=== PATIENT | female | born 1975 | race Caucasian/White ===

== ENCOUNTER 2016-10-04 16:13 | Emergency (ER) | payer OTHER ==
[~2016-10-04] VITALS: Ht 166.4 cm; Wt 49.8 kg
[2016-10-04 16:18] VITALS: TEMP 36.7; Ht 166.4 cm; Wt 49.8 kg
[2016-10-04] MEDS ORDERED: ONDANSETRON INJ 2 MG/ML 2 ML VIAL IV STA (16:26)
[2016-10-04] MEDS ORDERED: SODIUM CHLORIDE 0.9% 1000ML 1,000 ML IV STA (16:26)
--- NOTE | 2016-10-04 16:39 | EMERGENCY ROOM VISIT NOTE ---
History Report prepared by Kriss: Timothy Brugos Under the Supervision of: Dr. Yakov Rodriguez D.O. First contact with patient: 16:22 Chief Complaint: VOMITING Stated Complaint: VOMITING,SEIZURES History of Present Illness The patient is a 41 year old female who presents to the Emergency Room with complaints of vomiting that began this morning. She is vomiting about once per hour. The patient admitted to being a drug user. The patient has been using heroin through an IV and methamphetamine through means of smoking. Her last heroin use was three days ago. The patient is trying to quit her drug addiction. She is using Suboxone once per day to fight the withdrawal symptoms. The patient has some sores on her legs that the is concerned might be infected. She also had two seizures today: one mildly this morning and one more severely this afternoon. She has gone through withdrawal before. The patient's last period was a couple of months ago. She has a history of a tubal ligation, COPD, anxiety, depression, bipolar disorder and PTSD. She is not currently taking her psychological medications. She is also experiencing some diarrhea, nausea, and diaphoresis. She denies any fevers. Source of History: patient Onset: this morning Position: other (GI) Symptom Intensity: 1 episode per hour Quality: other (emesis) Timing: intermittent Associated Symptoms: + diaphoresis, + diarrhea, + nausea, No fevers Note: The patient has had two seizures today. Review of Systems See HPI for pertinent positives & negatives. A total of 10 systems reviewed and were otherwise negative. Past Medical & Surgical Medical Problems: (1) Anxiety (2) Bipolar disorder (3) Depression (4) PTSD (post-traumatic stress disorder) Surgical Problems: (1) Hx of tubal ligation Family History Patient reports no known family medical history. Social History Smoking Status: Current Every Day Smoker Alcohol Use: occasionally Drug Use: heroin, other (meth) Marital Status: Housing Status: lives with significant other Current/Historical Medications Scheduled Ondasetron Odt (Zofran Odt), 4 MG SL Q6H Trazodone Hcl (Trazodone), 150 MG PO HS Allergies Coded Allergies: Codeine (Verified Allergy, Unknown, itch, 10/04/16) Morphine (Verified Allergy, Unknown, itch, 10/04/16) Penicillins (Unverified Adverse Reaction, Unknown, vomit, 10/04/16) Physical Exam Vital Signs Date Time Temp Pulse Resp B/P Pulse Ox O2 Delivery O2 Flow Rate FiO2 10/04/16 20:32 78 18 137/66 95 10/04/16 19:11 88 18 127/83 99 Room Air 10/04/16 16:57 98 Room Air 10/04/16 16:57 98 Room Air 10/04/16 16:55 78 10/04/16 16:18 36.7 127 18 123/74 96 Room Air Physical Exam GENERAL: Patient is awake, alert, and somewhat anxious appearing, but comfortable. She does not appear to be in pain. EYES: The conjunctivae are clear. The pupils are round and reactive. EARS, NOSE, MOUTH AND THROAT: The nose is without any evidence of any deformity. Mucous membranes are dry. NECK: The neck is nontender and supple. RESPIRATORY: Normal respiratory effort is noted there is no evidence of wheezing rhonchi or rales CARDIOVASCULAR: Regular rate and rhythm noted there no murmurs rubs or gallops normal S1 normal S2 GASTROINTESTINAL: The abdomen is soft. Bowel sounds are present in all quadrants. Abdomen is nontender MUSCULOSKELETAL/EXTREMITIES: There is no evidence of gross deformity full range of motion is noted in the hips and shoulders SKIN: There is no obvious evidence of any rash. There are no petechiae, pallor or cyanosis noted. No pedal edema. No signs of cellulitis. There are a few skin ulcerations noted on the lower extremities. No erythema or signs of fluctuance. NEUROLOGIC: Patient is awake alert and oriented x3 strength is symmetric patellar reflexes are 1+ bilaterally PSYCH: Mildly anxious appearing. Currently denying any homicidal or suicidal ideation. Medical Decision & Procedures ER Provider Diagnostic Interpretation: Radiology results per my review and radiologist interpretation: CHEST ONE VIEW PORTABLE CLINICAL HISTORY: Overdose VOMITING, SEIZURES. COMPARISON STUDY: No previous studies for comparison. FINDINGS: The cardiac and mediastinal contours are normal. There is no evidence of focal pulmonary consolidation. There is no evidence of failure. No pleural effusions are visualized.[ IMPRESSION: No active disease in the chest. Electronically signed by: José Dolan M.D. 10/04/2016 4:49 PM Dictated Date/Time: 10/04/2016 4:48 PM KUB CLINICAL HISTORY: vomiting OVERDOSE, SEIZURES. COMPARISON STUDY: No previous studies for comparison. FINDINGS: There is no pathologic bowel dilatation. There is no conventional radiographic evidence of organomegaly. Subtle radiopaque densities in the left midabdomen, likely represent enteric contents. There is a spinal curvature convex to the right. Pelvic basin calcifications while nonspecific likely represent phleboliths. IMPRESSION: No evidence of pathologic bowel dilatation Electronically signed by: José Dolan M.D. 10/04/2016 4:50 PM Dictated Date/Time: 10/04/2016 4:[address] HEAD WITHOUT CONTRAST (CT) CLINICAL HISTORY: OVERDOSE CHANGE IN MENTAL STATUS COMPARISON STUDY: No previous studies for comparison. TECHNIQUE: Axial CT of the brain is performed from the vertex to the skull base. IV contrast was not administered for this examination. CT DOSE: 601.98 mGy.cm FINDINGS: No intra or extra-axial mass lesions are visualized. There is no CT evidence of acute cortical infarction. There is no evidence of midline shift. There is no acute hemorrhage. No calvarial fractures are visualized. There is no evidence of pathologic ventricular dilatation. There is no evidence of acute sinusitis IMPRESSION: No acute intracranial findings Electronically signed by: José Dolan M.D. 10/04/2016 6:07 PM Dictated Date/Time: 10/04/2016 6:03 PM Laboratory Results Test 10/04/16 17:25 Ethyl Alcohol mg/dL < 3.0 mg/dl (0-3) Laboratory results per my review. Medications Administered Medications (Trade) Dose Ordered Sig/[place] Route Start Time Stop Time Status Last Admin Dose Admin Ondansetron HCl (Zofran Odt) 4 mg ONE ONCE PO 10/04/16 17:30 10/04/16 17:31 DC 10/04/16 17:32 4 MG Ondansetron HCl (Zofran Odt) 4 mg ONE ONCE PO 10/04/16 19:00 10/04/16 19:01 DC 10/04/16 19:00 4 MG Ondansetron HCl (ZOFRAN ODT 4MG Home Pack) 1 homepack UD ONCE PO 10/04/16 20:15 10/04/16 20:16 DC 10/04/16 20:25 1 HOMEPACK ECG Indication: vomiting Rate (beats per minute): 80 Rhythm: normal sinus Findings: no ectopy, other (No acute ST abnormalities) Comparison ECG Date: no prior available ED Course 1622: The patient was evaluated in room A3. A complete history and physical examination were performed. 1626: Zofran Inj 4 mg IV, Sodium Chloride 1,000 ml @ 999 mls/hr IV 1725: The patient's veins are not cooperating. Will try other means. 1730: Zofran Odt 4 mg PO 1850: The patient will be given another dose of Zofran. 1900: Zofran Odt 4 mg PO 2015: Ondansetron HCl 1 homepack PO 2020: Upon reevaluation, the patient is resting. I discussed the results and treatment plan with her. She verbalized agreement of the treatment plan. She was discharged home. Medical Decision Differential diagnosis: Etiologies such as infection, hypoglycemia, electrolyte abnormalities, cardiac sources, intracerebral event, trauma, toxicologic, neurologic, as well as others were entertained. Nursing notes reviewed. Additional history is obtained from the patient's significant other. The patient is a 41-year-old female who has a history of IV drug abuse who presented to the emergency department for an evaluation of possible withdrawal and requesting detox information. The patient had no focal neurological cyst. She had no fever. She did appear to have tachycardia initially upon arrival but states that she was having nausea and vomiting at the time. The patient was reevaluated and was found to be not tachycardic and not hypoxic. She was treated with antiemetics in the emergency department. We attempted to start an IV and the patient and treated her with IV medications as well as IV fluids but we are unsuccessful and the patient refused to have any more laboratory draws or IV attempts. She was evaluated by the mental health case technician in the emergency department. She does not meet criteria for any inpatient management. She had no suicidal ideation. The patient was encouraged to continue using the Zofran 4 nausea. She was also encouraged to avoid any further drug abuse. She was also encouraged to call crisis or return to the emergency department immediately if symptoms change worsen or the need arises. Impression Primary Impression: Withdrawal from opioids Additional Impression: Nausea & vomiting Scribe Attestation The scribe's documentation has been prepared under my direction and personally reviewed by me in its entirety. I confirm that the note above accurately reflects all work, treatment, procedures, and medical decision making performed by me. Departure Information Dispostion Home / Self-Care Prescriptions Ondasetron Odt (ZOFRAN ODT) 4 Mg Tab 4 MG SL Q6H for Nausea, #15 TAB Prov: Yakov Rodriguez, DO 10/04/16 Referrals No Doctor, Assigned Forms HOME CARE DOCUMENTATION FORM, IMPORTANT VISIT INFORMATION Patient Instructions ED Nausea Vomiting, ED Withdrawal Narcotic, Count Includes [facility] Additional Instructions Drink plenty clear liquids including Gatorade and Pedialyte. Follow-up with your doctor soon as possible. Avoid any further opiate drug abuse. Return to the emergency department immediately or call crisis if symptoms change worsen or the need arises. Problem Qualifiers
[2016-10-04] MEDS ORDERED: TRAZ100T29 PO (16:44)
--- NOTE | 2016-10-04 16:51 | DIAGNOSTIC IMAGING REPORT ---
CHEST ONE VIEW PORTABLE CLINICAL HISTORY: Overdose VOMITING, SEIZURES. COMPARISON STUDY: No previous studies for comparison. FINDINGS: The cardiac and mediastinal contours are normal. There is no evidence of focal pulmonary consolidation. There is no evidence of failure. No pleural effusions are visualized.[ IMPRESSION: No active disease in the chest. Electronically signed by: José Dolan M.D. 10/04/2016 4:49 PM Dictated Date/Time: 10/04/2016 4:48 PM
--- NOTE | 2016-10-04 16:52 | DIAGNOSTIC IMAGING REPORT ---
KUB CLINICAL HISTORY: vomiting OVERDOSE, SEIZURES. COMPARISON STUDY: No previous studies for comparison. FINDINGS: There is no pathologic bowel dilatation. There is no conventional radiographic evidence of organomegaly. Subtle radiopaque densities in the left midabdomen, likely represent enteric contents. There is a spinal curvature convex to the right. Pelvic basin calcifications while nonspecific likely represent phleboliths. IMPRESSION: No evidence of pathologic bowel dilatation Electronically signed by: José Dolan M.D. 10/04/2016 4:50 PM Dictated Date/Time: 10/04/2016 4:49 PM
[2016-10-04 16:57] VITALS: O2SAT 98
[2016-10-04] MEDS ORDERED: ONDANSETRON 4MG OD TAB PO ONE ×2 (17:30→19:00)
--- NOTE | 2016-10-04 18:09 | DIAGNOSTIC IMAGING REPORT ---
CT HEAD WITHOUT CONTRAST (CT) CLINICAL HISTORY: OVERDOSE CHANGE IN MENTAL STATUS COMPARISON STUDY: No previous studies for comparison. TECHNIQUE: Axial CT of the brain is performed from the vertex to the skull base. IV contrast was not administered for this examination. CT DOSE: 601.98 mGy.cm FINDINGS: No intra or extra-axial mass lesions are visualized. There is no CT evidence of acute cortical infarction. There is no evidence of midline shift. There is no acute hemorrhage. No calvarial fractures are visualized. There is no evidence of pathologic ventricular dilatation. There is no evidence of acute sinusitis IMPRESSION: No acute intracranial findings Electronically signed by: José Dolan M.D. 10/04/2016 6:07 PM Dictated Date/Time: 10/04/2016 6:03 PM
[2016-10-04] MEDS ORDERED: ONDA4TAB10 SL (20:07)
[2016-10-04] MEDS ORDERED: ONDANSETRON HOME PACK 4MG OD TAB PO ONE (20:15)
[2016-10-04 20:32] VITALS: BP 137/66; PULSE 78; O2SAT 95
== END 2016-10-04 20:32 | disposition home or self-care (01) ==
LOC: C.EDB 16:15 → C.EDA 20:32
DX: F11.23 Opioid dependence with withdrawal (principal); F15.23 Other stimulant dependence with withdrawal; Z98.51 Tubal ligation status; J44.9 Chronic obstructive pulmonary disease, unspecified; F41.9 Anxiety disorder, unspecified; F43.10 Post-traumatic stress disorder, unspecified; F31.9 Bipolar disorder, unspecified; Z91.14 Patient's other noncompliance with medication regimen; F17.210 Nicotine dependence, cigarettes, uncomplicated; Z79.899 Other long term (current) drug therapy

== ENCOUNTER 2016-10-15 01:27 | Inpatient (IN) | payer OTHER ==
[~2016-10-15] VITALS: Ht 165.1 cm; Wt 55.4 kg
[~2016-10-15 01:27] MED LIST: ONDA4TAB10 SL; TRAZ100T29 PO
[2016-10-15] MEDS ORDERED: SODIUM CHLORIDE 0.9% 1000ML 1,000 ML IV STA (01:47)
[2016-10-15] MEDS ORDERED: HYDROmorphone INJ 0.5 MG/0.5 ML SYR IV STA ×2 (01:47→03:09)
--- NOTE | 2016-10-15 01:57 | EMERGENCY ROOM VISIT NOTE ---
History Report prepared by Leelaibjr: Chetna Gregory Under the Supervision of: Dr. Maxwell Brown M.D. First contact with patient: 01:41 Chief Complaint: INFECTION Stated Complaint: INFECTED LEG History of Present Illness The patient is a 41 year old female who presents to the Emergency Room with complaints of a worsening leg infection on her right thigh. She is accompanied by her boyfriend. She states the wound is "killing her" with her pain and rates her discomfort is an 8/10. Palpation worsens her discomfort. The wound has been increasing in size and she can now place her finger in it. The drainage is occasionally blood tinged. She reports she has experienced abscesses in the past , but states "they have always healed real well". The patient has a history of drug addiction but states she has not been using recently. She denies any history of MRSA or Staph infections. She notes she recently moved to the area from [place], and her housing situation has been unstable recently. She states she was living on the streets recently and has not been able to care for the wound as well as she should have. The patient also complains of some abdominal pain and states she thinks her abdomen is distended. 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 A total of 10 systems reviewed and were otherwise negative. Past Medical & Surgical Medical Problems: (1) Anxiety (2) Bipolar disorder (3) Depression (4) PTSD (post-traumatic stress disorder) Surgical Problems: (1) Hx of tubal ligation Family History Patient reports no known family medical history. Social History Smoking Status: Current Every Day Smoker Alcohol Use: occasionally Drug Use: heroin, other Marital Status: Housing Status: lives with significant other Current/Historical Medications Scheduled Ondasetron Odt (Zofran Odt), 4 MG SL Q6H Trazodone Hcl (Trazodone), 150 MG PO HS Allergies Coded Allergies: Codeine (Verified Allergy, Unknown, itch, 10/15/16) Morphine (Verified Allergy, Unknown, itch, 10/15/16) Penicillins (Unverified Adverse Reaction, Unknown, vomit, 10/15/16) Physical Exam Vital Signs Date Time Temp Pulse Resp B/P Pulse Ox O2 Delivery O2 Flow Rate FiO2 10/15/16 05:08 98 18 107/51 97 Room Air 10/15/16 03:07 89 18 92/56 98 Room Air 10/15/16 01:33 36.5 115 20 111/71 95 Room Air Physical Exam GENERAL: Patient is uncomfortable and anxious appearing and appears to be in moderate distress. HEENT: No acute trauma, normocephalic atraumatic, mucous membranes moist, no nasal congestion, no scleral icterus. NECK: No stridor, no adenopathy, no meningismus, trachea is midline. LUNGS: No dyspnea. Clear to auscultation and equal bilaterally. No wheeze, no rhonchi. HEART: Mildly tachycardic heart rate, regular rhythm. No murmurs, rubs, gallops appreciated. ABDOMEN: Soft, nontender, bowel sounds positive, no masses appreciated, no peritonitis. BACK: No midline tenderness, no CVA tenderness EXTREMITIES: Normal motion all extremities, no cyanosis, no edema. NEUROLOGIC: Alert and oriented, no acute motor or sensory deficits, no focal weakness, cranial nerves grossly intact. SKIN: Large amount of track palacios and skin popping areas that are healing. There is a 5 by 6 cm raised erythematous area on right lateral thigh with a 1 cm ulcer which exudes exudate on palpation, very tender to palpation. Medical Decision & Procedures ER Provider Diagnostic Interpretation: This X-Ray was reviewed and interpreted by myself as we do not have a radiologist on staff overnight. RIGHT FEMUR X-RAY, MULTIPLE VIEWS No foreign bodies appreciated, no fracture or dislocation. Large area of swelling measuring 16 cm in length, beneath a 1 by 1 cm ulcerative finding in the skin, no free air under skin appreciated. This Ultrasound was reviewed and interpreted by the radiologist and reviewed by myself. US EXTREMITY: There is an open wound along the right lateral aspect of the pelvis, extending to a depth of approximately 1.1 cm. There is surrounding significant increased hypervascularity. Approximately 0.8 cm hypoechoic region adjacent to wound without internal vascular flow, best seen on image 1024 of series 1, may represent phlegmon. Radiologist: Tony Rivera M.D. Laboratory Results 10/15/16 02:30 Red Blood Count 3.43, Mean Corpuscular Volume 87.5, Mean Corpuscular Hemoglobin 29.2, Mean Corpuscular Hemoglobin Concent 33.3, Mean Platelet Volume 9.4, Neutrophils (%) (Auto) 48.0, Lymphocytes (%) (Auto) 39.6, Monocytes (%) (Auto) 7.9, Eosinophils (%) (Auto) 3.9, Basophils (%) (Auto) 0.3, Neutrophils # (Auto) 3.81, Lymphocytes # (Auto) 3.14, Monocytes # (Auto) 0.63, Eosinophils # (Auto) 0.31, Basophils # (Auto) 0.02 10/15/16 02:30 Test 10/15/16 01:47 10/15/16 02:10 10/15/16 02:27 10/15/16 02:30 Urine Test NEG (NEG) Urine Color YELLOW Urine Appearance CLEAR (CLEAR) Urine pH 7.5 (4.5-7.5) Urine Specific [place] 1.007 (1.000-1.030) Urine Protein NEG (NEG) Urine Glucose (UA) NEG (NEG) Urine Ketones NEG (NEG) Urine Occult Blood NEG (NEG) Urine Nitrite NEG (NEG) Urine Bilirubin NEG (NEG) Urine Urobilinogen NEG (NEG) Urine Leukocyte Esterase NEG (NEG) Urine WBC (Auto) 0 /hpf (0-5) Urine RBC (Auto) 0-4 /hpf (0-4) Urine Hyaline Casts (Auto) 0 /lpf (0-5) Urine Epithelial Cells (Auto) 20-30 /lpf (0-5) Urine Bacteria (Auto) NEG (NEG) Bedside Lactic Acid Venous < 0.30 mmol/L (0.90-1.70) White Blood Count 7.93 K/uL (4.8-10.8) Red Blood Count 3.43 M/uL (4.2-5.4) Hemoglobin 10.0 g/dL (12.0-16.0) Hematocrit 30.0 % (37-47) Mean Corpuscular Volume 87.5 fL (80-100) Mean Corpuscular Hemoglobin 29.2 pg (25-34) Mean Corpuscular Hemoglobin Concent 33.3 g/dl (32-36) Platelet Count 240 K/uL (130-400) Mean Platelet Volume 9.4 fL (7.4-10.4) Neutrophils (%) (Auto) 48.0 % Lymphocytes (%) (Auto) 39.6 % Monocytes (%) (Auto) 7.9 % Eosinophils (%) (Auto) 3.9 % Basophils (%) (Auto) 0.3 % Neutrophils # (Auto) 3.81 K/uL (1.4-6.5) Lymphocytes # (Auto) 3.14 K/uL (1.2-3.4) Monocytes # (Auto) 0.63 K/uL (0.11-0.59) Eosinophils # (Auto) 0.31 K/uL (0-0.5) Basophils # (Auto) 0.02 K/uL (0-0.2) RDW Standard Deviation 45.3 fL (36.4-46.3) RDW Coefficient of Variation 14.2 % (11.5-14.5) Immature Granulocyte % (Auto) 0.3 % Immature Granulocyte # (Auto) 0.02 K/uL (0.00-0.02) Anion Gap 6.0 mmol/L (3-11) Est Creatinine Clear Calc Drug Dose 88.4 ml/min Estimated GFR () 117.5 Estimated GFR (Non- 101.3 BUN/Creatinine Ratio 23.4 (10-20) Calcium Level 9.0 mg/dl (8.5-10.1) Magnesium Level 2.1 mg/dl (1.8-2.4) Total Bilirubin 0.1 mg/dl (0.2-1) Direct Bilirubin < 0.1 mg/dl (0-0.2) Aspartate Amino Transf (AST/SGOT) 5 U/L (15-37) Alanine Aminotransferase (ALT/SGPT) 14 U/L (12-78) Alkaline Phosphatase 68 U/L (45-117) C-Reactive Protein 5.20 mg/dl (0-0.29) Total Protein 6.8 gm/dl (6.4-8.2) Albumin 3.1 gm/dl (3.4-5.0) Lipase 111 U/L (73-393) Test 10/15/16 04:05 Laboratory results as reviewed by me Medications Administered Medications (Trade) Dose Ordered Sig/[place] Route Start Time Stop Time Status Last Admin Dose Admin Sodium Chloride (Nss 1000ml) 1,000 ml @ 999 mls/hr Q1H1M STAT IV 10/15/16 01:47 10/15/16 02:47 DC 10/15/16 02:30 999 MLS/HR Hydromorphone HCl (Dilaudid Inj) 0.5 mg NOW STAT IV 10/15/16 01:47 10/15/16 01:51 DC 10/15/16 02:30 0.5 MG Hydromorphone HCl (Dilaudid Inj) 0.5 mg NOW STAT IV 10/15/16 03:09 10/15/16 03:10 DC 10/15/16 03:15 0.5 MG Ceftriaxone Sodium (Rocephin Inj) 1 gm NOW STAT IV 10/15/16 03:09 10/15/16 03:10 DC 10/15/16 03:15 1 GM Vancomycin HCl (Vancomycin 1gm/ 270ml Nss) 1 gm STK-MED ONCE .ROUTE 10/15/16 03:26 10/15/16 03:28 DC 10/15/16 03:53 1 GM Diphtheria/ Pertussis/Tetanus Vacc (Adacel Inj) 0.5 ml ONCE ONCE IM. 10/15/16 04:15 10/15/16 04:16 DC 10/15/16 04:09 0.5 ML ED Course 0143: The patient was evaluated in room B2. A complete history and physical exam was performed. 0147: Dilaudid 0.5 mg IV, NSS 1000 ml @ 999 mls/hr IV. 0309: Rocephin 1 gm IV, Vancomycin HCl 1000 mg/NSS 270 ml @ 125 mls/hr IV, Dilaudid 0.5 mg IV. 0326: Vancomycin 1 gm IV. 0330: I reevaluated the patient. She is feeling a little better. I discussed the benefits and consequences associated with hospital admission and she agrees to further evaluation. 0350: I discussed the patient's case with Dr. Cho, [facility] Hospitalist. The patient will be further evaluated. 0405: I reevaluated the patient. She is resting comfortably. She thinks she has received a Tetanus shot in the past 10 years, but is not totally sure. Medical Decision Differential Diagnoses include abscess, MRSA, cellulitis, necrotizing fascitis and sepsis. 41 yr old female arrives with acute pain and infection of right thigh. Unclear if immunocompromised state given she is known IV drug abuser but she is clearly malnutritioned. There is black/exudative drainage from 1cm ulcer mid swelling lateral thigh with extensive cellulitis extending much of lateral right thigh. She is not septic nor is there evidence of bacteremia but with extent of this infection I feel she will clearly need further IV abx and possibly surgical debridement. No current finding of nec fasc. Consults Time Called: 033 Consulting Physician: Dr. Cho, [facility] Hopsitalist Returned Call: 0350 I discussed the patient's case with Dr. Cho, [facility] Hospitalist. The patient will be further evaluated. Impression Primary Impression: Cellulitis of right thigh Additional Impressions: Phlegmonous cellulitis Malnutrition Scribe Attestation The scribe's documentation has been prepared under my direction and personally reviewed by me in its entirety. I confirm that the note above accurately reflects all work, treatment, procedures, and medical decision making performed by me. Departure Information Dispostion Being Evaluated By Hospitalist Referrals No Doctor, Assigned (PCP) Patient Instructions My [facility] Problem Qualifiers
[2016-10-15 02:42] LABS: BASO % 0.3 %; BASO ABS # 0.02 K/uL (0-0.2); COMPLETE YES; EOS % 3.9 %; IG% 0.3 %; LYMPH % 39.6 %; LYMPH ABS # 3.14 K/uL (1.2-3.4); MEAN CELL VOLUME 87.5 fL (80-100); MEAN CORPUSCULAR HEMOGLOBIN 29.2 pg (25-34); MEAN CORPUSCULAR HGB CONC 33.3 g/dl (32-36); MEAN PLATELET VOLUME 9.4 fL (7.4-10.4); MONO % 7.9 %; PLATELET COUNT 240 K/uL (130-400); RED BLOOD COUNT 3.43 M/uL (4.2-5.4); WHITE BLOOD COUNT 7.93 K/uL (4.8-10.8)
[2016-10-15 03:00] LABS: ALT/SGPT 14 U/L (12-78); AST/SGOT 5 U/L (15-37); BLOOD UREA NITROGEN 17 mg/dl (7-18); BUN/CREATININE RATIO 23.4 (10-20); CARBON DIOXIDE 28 mmol/L (21-32); CHLORIDE 106 mmol/L (98-107); CREATININE 0.74 mg/dl (0.60-1.20); GLUCOSE 99 mg/dl (70-99); MAGNESIUM 2.1 mg/dl (1.8-2.4); POTASSIUM 4.2 mmol/L (3.5-5.1); SODIUM 140 mmol/L (136-145)
[2016-10-15 03:04] LABS: ALKALINE PHOSPHATASE 68 U/L (45-117)
[2016-10-15] MEDS ORDERED: VANCOMYCIN INJ 1,000 MG in SODIUM CHLORIDE 0.9% 250ML 250 ML IV STA (03:09)
[2016-10-15] MEDS ORDERED: CEFTRIAXONE SOD INJ 1 GM ADDVIAL IV STA (03:09)
[2016-10-15 03:10] LABS: MANUAL MICROSCOPIC REQUIRED? NO; REVIEW REQ? NO; URINE APPEARANCE CLEAR (CLEAR); URINE BILIRUBIN NEG (NEG); URINE COLOR YELLOW; URINE EPITHELIAL CELL AUTO 20-30 /lpf (0-5); URINE NITRITE NEG (NEG); URINE PH 7.5 (4.5-7.5); URINE SPECIFIC GRAVITY 1.007 (1.000-1.030); UROBILINOGEN NEG (NEG); ZZUR CULT IF INDIC CLEAN CATCH NO
[2016-10-15] MEDS ORDERED: VANCOMYCIN 1GM/270ML NSS ONE (03:26)
[2016-10-15] MEDS ORDERED: DIPHTHERIA/TETANUS/PERTUSSIS 0.5 ML SYR/VIAL IM. ONE (04:15)
[2016-10-15] MEDS ORDERED: MAGNESIUM HYDROXIDE SUSP 30 ML UDC PO PRN (04:15)
[2016-10-15] MEDS ORDERED: ALUMINUM/MAGNESIUM/SIMETH (MAALOX MAX) 30 ML UDC PO PRN (04:15)
[2016-10-15] MEDS ORDERED: ONDANSETRON INJ 2 MG/ML 2 ML VIAL IV PRN (04:15)
--- NOTE | 2016-10-15 04:56 | History and Physical ---
History & Physical Date & Time of Service: Oct 15, 2016 at 04:14 Chief Complaint: Infected Leg Primary Care Physician: No Doctor, Assigned History of Present Illness Source: patient, partner This is a 41 yo f that is presenting to us with cellulitis of the right upper thigh. She states that approx a week ago, after her more recent visit to the ED for withdrawal, she started to have pain and redness in the right upper thigh. It evolved into into an ulcer that is drainage a blackish pus especially in the last 24 hours. She denies ever having any fever, chest pain, SOB or abdominal pain. She does note that she recently moved here from [place] with the hopes that her and her partner could "get their lives together." She has been heroin/ methadone free for the past two and a half weeks apparently. Prior to moving here she was homeless, living in a tent or in empty homes. She is unsure of ever having an infection with MRSA. She denies ever having any fevers, chest pain, numbness, weakness, abdominal pain or shortness of breath. She was testing for HIV years ago which was negative but agreeable to be retested. Past Medical/Surgical History Medical Problems: (1) Anxiety Status: Chronic (2) Bipolar disorder Status: Chronic (3) Depression Status: Chronic (4) PTSD (post-traumatic stress disorder) Status: Chronic Surgical Problems: (1) Hx of tubal ligation Status: Resolved Family History Patient reports no known family medical history. Social History Smoking Status: Current Every Day Smoker Smokeless Tobacco Use: No Drug Use: heroin, other Marital Status: in relationship Housing status: lives with friends Occupational Status: unemployed Immunizations History of Influenza Vaccine: No Allergies Coded Allergies: Codeine (Verified Allergy, Unknown, itch, 10/15/16) Morphine (Verified Allergy, Unknown, itch, 10/15/16) Penicillins (Unverified Adverse Reaction, Unknown, vomit, 10/15/16) Home Medications Scheduled Ondasetron Odt (Zofran Odt), 4 MG SL Q6H Trazodone Hcl (Trazodone), 150 MG PO HS Review of Systems Constitutional: No fever Eyes: No worsening of vision ENT: No hearing loss Respiratory: No cough, No dyspnea at rest, No dyspnea on exertion, No shortness of breath Cardiovascular: No chest pain Abdomen: No constipation, No diarrhea, No nausea, No pain, No vomiting Musculoskeletal: + muscle pain, + swelling Genitourinary - Female: No dysuria, No hematuria Neurologic: No balance problems, No numbness/tingling, No weakness Endocrine: No fatigue Integumentary: No rash Physical Exam Vital Signs Date Time Temp Pulse Resp B/P Pulse Ox O2 Delivery O2 Flow Rate FiO2 10/15/16 03:07 89 18 92/56 98 Room Air 10/15/16 01:33 36.5 115 20 111/71 95 Room Air General Appearance: WD/WN, no apparent distress Head: normocephalic, atraumatic Eyes: normal inspection ENT: normal ENT inspection Neck: supple Respiratory/Chest: lungs clear, normal breath sounds, no respiratory distress, no accessory muscle use Cardiovascular: regular rate, rhythm, no murmur Abdomen/GI: normal bowel sounds, non tender, soft Back: normal inspection Extremities/Musculoskelatal: + pertinent finding (right upper thigh cellulitis , sanguinous drainage currently) Neurologic/Psych: normal mood/affect, oriented x 3 Skin: normal color, no rash Lymphatic: no adenopathy Diagnostics Laboratory Results Results Past 24 Hours Test 10/15/16 01:47 10/15/16 02:10 10/15/16 02:27 10/15/16 02:30 Range/Units Urine Test NEG NEG Urine Color YELLOW Urine Appearance CLEAR CLEAR Urine pH 7.5 4.5-7.5 Urine Specific [place] 1.007 1.000-1.030 Urine Protein NEG NEG Urine Glucose (UA) NEG NEG Urine Ketones NEG NEG Urine Occult Blood NEG NEG Urine Nitrite NEG NEG Urine Bilirubin NEG NEG Urine Urobilinogen NEG NEG Urine Leukocyte Esterase NEG NEG Urine WBC (Auto) 0 0-5 /hpf Urine RBC (Auto) 0-4 0-4 /hpf Urine Hyaline Casts (Auto) 0 0-5 /lpf Urine Epithelial Cells (Auto) 20-30 0-5 /lpf Urine Bacteria (Auto) NEG NEG Bedside Lactic Acid Venous < 0.30 0.90-1.70 mmol/L White Blood Count 7.93 4.8-10.8 K/uL Red Blood Count 3.43 4.2-5.4 M/uL Hemoglobin 10.0 12.0-16.0 g/dL Hematocrit 30.0 37-47 % Mean Corpuscular Volume 87.5 80-100 fL Mean Corpuscular Hemoglobin 29.2 25-34 pg Mean Corpuscular Hemoglobin Concent 33.3 32-36 g/dl Platelet Count 240 130-400 K/uL Mean Platelet Volume 9.4 7.4-10.4 fL Neutrophils (%) (Auto) 48.0 % Lymphocytes (%) (Auto) 39.6 % Monocytes (%) (Auto) 7.9 % Eosinophils (%) (Auto) 3.9 % Basophils (%) (Auto) 0.3 % Neutrophils # (Auto) 3.81 1.4-6.5 K/uL Lymphocytes # (Auto) 3.14 1.2-3.4 K/uL Monocytes # (Auto) 0.63 0.11-0.59 K/uL Eosinophils # (Auto) 0.31 0-0.5 K/uL Basophils # (Auto) 0.02 0-0.2 K/uL RDW Standard Deviation 45.3 36.4-46.3 fL RDW Coefficient of Variation 14.2 11.5-14.5 % Immature Granulocyte % (Auto) 0.3 % Immature Granulocyte # (Auto) 0.02 0.00-0.02 K/uL Sodium Level 140 136-145 mmol/L Potassium Level 4.2 3.5-5.1 mmol/L Chloride Level 106 98-107 mmol/L Carbon Dioxide Level 28 21-32 mmol/L Anion Gap 6.0 3-11 mmol/L Blood Urea Nitrogen 17 7-18 mg/dl Creatinine 0.74 0.60-1.20 mg/dl Est Creatinine Clear Calc Drug Dose 88.4 ml/min Estimated GFR () 117.5 Estimated GFR (Non- 101.3 BUN/Creatinine Ratio 23.4 10-20 Random Glucose 99 70-99 mg/dl Calcium Level 9.0 8.5-10.1 mg/dl Magnesium Level 2.1 1.8-2.4 mg/dl Total Bilirubin 0.1 0.2-1 mg/dl Direct Bilirubin < 0.1 0-0.2 mg/dl Aspartate Amino Transf (AST/SGOT) 5 15-37 U/L Alanine Aminotransferase (ALT/SGPT) 14 12-78 U/L Alkaline Phosphatase 68 45-117 U/L C-Reactive Protein 5.20 0-0.29 mg/dl Total Protein 6.8 6.4-8.2 gm/dl Albumin 3.1 3.4-5.0 gm/dl Lipase 111 73-393 U/L Test 10/15/16 04:05 Range/Units Microbiology Results 10/15/16 Blood Culture, Received Pending 10/15/16 Blood Culture, Received Pending 10/15/16 Gram Stain, Received Pending 10/15/16 Wound Culture, Received Pending Impression Assessment and Plan This is a 41 yo f with a h/o drug abuse that is presenting to us with right upper thigh cellulitis Cellulitis of the right upper thigh - continue Rocephin and Vanco - MRSA screen - CBC in am - HIV/HCV - gen surgery consult H/O drug abuse - observe for signs of withdrawal - U Tox Depression - Continue Trazodone DVT prophylaxis - SCD FULL CODE Documented By: Crescencio Cummings Resident Physician Supervision Note: I was present with [Name of resident] during the history and exam. I discussed the case with the resident and agree with the findings and plan as documented in the note. Any exceptions or clarifications are listed here: Pt seen/examined and management discussed with resident Presented with thigh abscess likely due to IVDU as she is a long-term opiate user IV antibiotics provided - Wound cultures pending Pt will be evaluated by surgery for potential debridement Level of Care Med/Surg Resuscitation Status FULL RESUSCITATION VTE Prophylaxis VTE Risk Assessment Done? Y/N: Yes Risk Level: Moderate Given or contraindicated: SCD's Social Service Consult Homeless Note Total Time: Critical Care 30 - 74 minutes
[2016-10-15] MEDS ORDERED: ONDANSETRON 4MG OD TAB SL PRN (05:15)
[2016-10-15 06:19] VITALS: BP 95/63; PULSE 93; TEMP 36.6; O2SAT 98; Ht 165.1 cm; Wt 55.4 kg
[2016-10-15] MEDS ORDERED: INFLUENZA ADMINISTRATION CHARGE ONE (07:30)
[2016-10-15] MEDS ORDERED: INFLUENZA VIRUS QUAD VACCINE 0.5 ML SYR IM. ONE (07:30)
--- NOTE | 2016-10-15 07:34 | DIAGNOSTIC IMAGING REPORT ---
RIGHT FEMUR 2 VIEWS ROUTINE CLINICAL HISTORY: right lateral upper thigh abscess/infection Right pain COMPARISON: None. DISCUSSION: The bones and joint spaces appear intact. There is no evidence of fracture, dislocation or bony disease. Moderate soft tissue edema lateral to the proximal femur and right hip. Possible small subcutaneous air pocket IMPRESSION: No acute bony abnormality. Soft tissue edema lateral to the hip and proximal femur with a small subcutaneous air pocket laterally Electronically signed by: Star Chaves M.D. 10/15/2016 7:33 AM Dictated Date/Time: 10/15/2016 7:31 AM
[2016-10-15 07:35] VITALS: BP 93/59; PULSE 83; TEMP 36.6; O2SAT 99
--- NOTE | 2016-10-15 07:37 | DIAGNOSTIC IMAGING REPORT ---
Ultrasound right thigh RIGHT EXTREMITY NONVASCULAR LIMITED CLINICAL HISTORY: right upper lateral thigh abscess Right abscess TECHNIQUE: Real-time ultrasound COMPARISON STUDY: None FINDINGS: Generalized soft tissue edematous change with linear foci of fluid within inferolateral aspect of the proximal right thigh. Small subcutaneous pocket measuring 8 x 12 mm possibly represent a small collection versus trauma. IMPRESSION: Generalized soft tissue edematous change lateral aspect right upper thigh with findings suggesting potential early phlegmon formation with a small 1 cm superficial fluid pocket/open wound. Electronically signed by: Star Chaves M.D. 10/15/2016 7:36 AM Dictated Date/Time: 10/15/2016 7:33 AM
--- NOTE | 2016-10-15 07:48 | Hospitalist Progress Note ---
Hospitalist Progress Note Date of Service Oct 15, 2016. Subjective Pt evaluation today including: conversation w/ patient, physical exam, chart review, lab review, review of studies, review of inpatient medication list Voiding: no voiding problems, no incontinence Patient states she is feeling well. +anxiousness due to planned I&D by General Surgery. Cellulitis seems improved since admission, less erythema. Patient is eating and drinking OK. Patient denies any fever, chills, sweats, lightheadedness, dizziness, vision changes, CP, palpitations, edema, SOB, wheezing, cough, abdominal pain, nausea, vomiting, diarrhea, urinary symptoms, melena, numbness/tingling, weakness, muscle/joint pain, depression, active bleeding. Medications Current Inpatient Medications Medications (Trade) Dose Ordered Sig/[place] Route Start Time Stop Time Status Last Admin Dose Admin Acetaminophen (Tylenol Tab) 650 mg Q4H PRN PO 10/15/16 04:15 11/14/16 04:14 Al Hydrox/Mg Hydrox/Simethicone (Maalox Max Susp) 15 ml Q4H PRN PO 10/15/16 04:15 11/14/16 04:14 Magnesium Hydroxide (Milk Of Magnesia Susp) 30 ml Q6H PRN PO 10/15/16 04:15 11/14/16 04:14 Ondansetron HCl 4 mg 4 mg Q6H PRN IV 10/15/16 04:15 11/14/16 04:14 Vancomycin HCl 1050 mg/Sodium Chloride 271 ml @ 125 mls/hr Q12H IV 10/15/16 12:00 10/25/16 03:59 Ceftriaxone Sodium/Dextrose (Rocephin Inj/ Dextrose Add-[place] 50ML) 50 ml @ 100 mls/hr Q24H IV 10/16/16 03:00 10/24/16 03:29 Ondansetron HCl (Zofran Odt) 4 mg Q6H PRN SL 10/15/16 05:15 11/14/16 05:14 Trazodone HCl (Desyrel Tab) 150 mg HS PO 10/15/16 21:00 11/14/16 20:59 Lidocaine/ Epinephrine (Xylocaine/Epine 1% Inj) 20 ml TODAY@0900 INFIL 10/15/16 09:00 10/15/16 23:59 Vancomycin HCl (Consult) 1 ea UD PRN N/A 10/15/16 08:45 11/14/16 08:44 Objective Vital Signs Date Time Temp Pulse Resp B/P Pulse Ox O2 Delivery O2 Flow Rate FiO2 10/15/16 07:35 36.6 83 16 93/59 99 Room Air 10/15/16 06:19 36.6 93 18 95/63 98 Room Air 10/15/16 05:08 98 18 107/51 97 Room Air 10/15/16 03:07 89 18 92/56 98 Room Air 10/15/16 01:33 36.5 115 20 111/71 95 Room Air Physical Exam General Appearance: no apparent distress Eyes: normal inspection, PERRL ENT: hearing grossly normal, + pertinent finding (poor dentition ) Neck: supple Respiratory/Chest: lungs clear, no respiratory distress, no accessory muscle use Cardiovascular: regular rate, rhythm Abdomen: normal bowel sounds, non tender, soft Extremities: no pedal edema, no calf tenderness, + pertinent finding (Right lateral thigh cellulitis with 6cm x 6cm erythemic circular region with 1cm x 1cm center ulceration with obvious exudative drainage) Neurologic/Psychiatric: alert, normal mood/affect, oriented x 3 Skin: normal color, warm/dry, no rash Laboratory Results Last 24 Hours Test 10/15/16 01:47 10/15/16 02:10 10/15/16 02:27 10/15/16 02:30 Urine Test NEG Urine Color YELLOW Urine Appearance CLEAR Urine pH 7.5 Urine Specific [place] 1.007 Urine Protein NEG Urine Glucose (UA) NEG Urine Ketones NEG Urine Occult Blood NEG Urine Nitrite NEG Urine Bilirubin NEG Urine Urobilinogen NEG Urine Leukocyte Esterase NEG Urine WBC (Auto) 0 /hpf Urine RBC (Auto) 0-4 /hpf Urine Hyaline Casts (Auto) 0 /lpf Urine Epithelial Cells (Auto) 20-30 /lpf Urine Bacteria (Auto) NEG Bedside Lactic Acid Venous < 0.30 mmol/L White Blood Count 7.93 K/uL Red Blood Count 3.43 M/uL Hemoglobin 10.0 g/dL Hematocrit 30.0 % Mean Corpuscular Volume 87.5 fL Mean Corpuscular Hemoglobin 29.2 pg Mean Corpuscular Hemoglobin Concent 33.3 g/dl Platelet Count 240 K/uL Mean Platelet Volume 9.4 fL Neutrophils (%) (Auto) 48.0 % Lymphocytes (%) (Auto) 39.6 % Monocytes (%) (Auto) 7.9 % Eosinophils (%) (Auto) 3.9 % Basophils (%) (Auto) 0.3 % Neutrophils # (Auto) 3.81 K/uL Lymphocytes # (Auto) 3.14 K/uL Monocytes # (Auto) 0.63 K/uL Eosinophils # (Auto) 0.31 K/uL Basophils # (Auto) 0.02 K/uL RDW Standard Deviation 45.3 fL RDW Coefficient of Variation 14.2 % Immature Granulocyte % (Auto) 0.3 % Immature Granulocyte # (Auto) 0.02 K/uL Sodium Level 140 mmol/L Potassium Level 4.2 mmol/L Chloride Level 106 mmol/L Carbon Dioxide Level 28 mmol/L Anion Gap 6.0 mmol/L Blood Urea Nitrogen 17 mg/dl Creatinine 0.74 mg/dl Est Creatinine Clear Calc Drug Dose 88.4 ml/min Estimated GFR () 117.5 Estimated GFR (Non- 101.3 BUN/Creatinine Ratio 23.4 Random Glucose 99 mg/dl Calcium Level 9.0 mg/dl Magnesium Level 2.1 mg/dl Total Bilirubin 0.1 mg/dl Direct Bilirubin < 0.1 mg/dl Aspartate Amino Transf (AST/SGOT) 5 U/L Alanine Aminotransferase (ALT/SGPT) 14 U/L Alkaline Phosphatase 68 U/L C-Reactive Protein 5.20 mg/dl Total Protein 6.8 gm/dl Albumin 3.1 gm/dl Lipase 111 U/L Test 10/15/16 07:04 Assessment and Plan This is a 41 yo female that is presenting to us with cellulitis of the right upper thigh. She states that approx a week ago, after her more recent visit to the ED for withdrawal, she started to have pain and redness in the right upper thigh. It evolved into into an ulcer that is drainage a blackish pus especially in the last 24 hours. She denies ever having any fever, chest pain, SOB or abdominal pain. She does note that she recently moved here from [place] with the hopes that her and her partner could "get their lives together." She has been heroin/ methadone free for the past two and a half weeks apparently. Prior to moving here she was homeless, living in a tent or in empty homes. She is unsure of ever having an infection with MRSA. She denies ever having any fevers , chest pain, numbness, weakness, abdominal pain or shortness of breath. She was testing for HIV years ago which was negative but agreeable to be retested. Cellulitis of the right upper thigh: - Admit med/surg - Femur x-ray- No acute bony abnormality. Soft tissue edema lateral to the hip and proximal femur with a small subcutaneous air pocket laterally. - Right lower extremity U/S- Generalized soft tissue edematous change lateral aspect right upper thigh with findings suggesting potential early phlegmon formation with a small 1 cm superficial fluid pocket/open wound. - IV Vancomycin + Rocephin - Pending blood cultures - Wound cultures - U/A negative, pending urine toxicology screen - MRSA screen negative - HIV/HCV - Follow CBC and BMP - Consult General Surgery, appreciate recommendation -- Plan for I&D on 2 H/O drug abuse: - Observe for signs of withdrawal - Last used ~2 weeks ago per patient. Was seen in ED on 10/04 for withdrawal symptoms (seizures). Denies any recent withdrawal symptoms Tobacco abuse: - Smokes ~1 pack per day - Smoking cessation counselling - Nicotine patch Depression - Continue Trazodone GI Prophylaxis: - Maalox PRN - IV Zofran PRN - Colace and/or Milk of Mag PRN DVT prophylaxis - Early ambulation - SCD Code Status: - LEVEL I, FULL Dispo: - Lives in [place] with boyfriend. No PCP. Would like setup with outpatient meetings. Consult forensic social worker - Discharge to home once medically stable Continued [facility] stay due to: multiple IV medications needed
[2016-10-15] MEDS ORDERED: KETOROLAC TROMETHAMINE 30 MG/ML VIAL IV ONE (08:45)
[2016-10-15] MEDS ORDERED: VANCOMYCIN CONSULT ACTIVE PRN (08:45)
[2016-10-15] MEDS ORDERED: NURSING VERBAL MED ORDER ONE (08:45)
--- NOTE | 2016-10-15 08:47 | Pre-Operative Consultation ---
History General Date of Service: Oct 15, 2016. Stated Complaint: Right hip/upper thigh pain (Kailyn Styles PA-C) HPI HPI: The patient is a 41 year old female being seen for pre-operative evaluation. Kylah presented to the hospital late last evening with complaint of a week of right hip/upper thigh pain/redness/and swelling. States there was an area that came to a head and that she poked it and expressed some clear/yellow drainage. States she has history of skin infections but nothing this severe. Has history of Heroin/methadone addiction, currently 3 weeks clean (per patient) . Denies of any trauma to the right thigh or any injections in the area. Denies of any known history of MRSA infections. Currently denies of any fever, chills, increasing pain, spreading redness or increasing drainage. She had an xray of the right femur which showed no bony involvement. She also had an ultrasound of the right upper extremity which showed generalized edema of the right upper thigh with an small air pocket laterally. Vital signs have been stable No leukocytosis Historian: patient Anticipated Procedure: Incision and drainage and debridement of the right upper thigh wound under local anesthesia at bedside. Procedure Urgency: Elective (Kailyn Styles PA-C) Risk Assessment Daily beta isaias use?: No (Kailyn Styles PA-C) Problem List Medical Problems: (1) Cellulitis of right thigh Status: Acute (2) Malnutrition Status: Acute (3) Nausea & vomiting Status: Acute (4) Phlegmonous cellulitis Status: Acute (5) Withdrawal from opioids Status: Acute (Kailyn Styles PA-C) Medical & Surgical History Past Medical History: PTSD Past Medical History: anxiety, bipolar disorder, depression, drug addiction Past Surgical History: , tubal ligation, other (back surgery in 2007) (Kailyn Styles PA-C) Family History Family History: no pertinent family hx (Kailyn Styles PA-C) Social History Hx Tobacco Use In Past Year?: Yes Smoking Status: Current Every Day Smoker (1 pack per day for over 20 years) Alcohol: occasionally Drug Use: heroin, other Marital status: in relationship Housing status: lives with friends Occupation status: unemployed (Jensen, Kailyn ., PA-C) Immunizations Have You Had Influenza Vaccine: No Have You Had Tetanus Vaccine: Yes (Kailyn Styles ., PAGhazalaC) Allergies Allergies: Coded Allergies: Codeine (Verified Allergy, Unknown, itch, 10/15/16) Morphine (Verified Allergy, Unknown, itch, 10/15/16) Penicillins (Unverified Adverse Reaction, Unknown, vomit, 10/15/16) Medications Current Inpatient Medications Current Inpatient Medications Medications (Trade) Dose Ordered Sig/[place] Route Start Time Stop Time Status Last Admin Dose Admin Acetaminophen (Tylenol Tab) 650 mg Q4H PRN PO 10/15/16 04:15 11/14/16 04:14 Al Hydrox/Mg Hydrox/Simethicone (Maalox Max Susp) 15 ml Q4H PRN PO 10/15/16 04:15 11/14/16 04:14 Magnesium Hydroxide (Milk Of Magnesia Susp) 30 ml Q6H PRN PO 10/15/16 04:15 11/14/16 04:14 Ondansetron HCl 4 mg 4 mg Q6H PRN IV 10/15/16 04:15 11/14/16 04:14 Vancomycin HCl 1050 mg/Sodium Chloride 271 ml @ 125 mls/hr Q12H IV 10/15/16 12:00 10/25/16 03:59 Ceftriaxone Sodium/Dextrose (Rocephin Inj/ Dextrose Add-[place] 50ML) 50 ml @ 100 mls/hr Q24H IV 10/16/16 03:00 10/24/16 03:29 Ondansetron HCl (Zofran Odt) 4 mg Q6H PRN SL 10/15/16 05:15 11/14/16 05:14 Trazodone HCl (Desyrel Tab) 150 mg HS PO 10/15/16 21:00 11/14/16 20:59 Ketorolac Tromethamine (Toradol Inj) 30 mg NOW ONCE IV 10/15/16 08:45 10/15/16 08:46 10/15/16 08:39 30 MG Lidocaine/ Epinephrine (Xylocaine/Epine 1% Inj) 20 ml TODAY@0900 INFIL 10/15/16 09:00 10/15/16 23:59 Vancomycin HCl (Consult) 1 ea UD PRN N/A 10/15/16 08:45 11/14/16 08:44 (Kailyn Styles PA-C) Review of Systems Review of Systems Constitutional: denies chills, denies fever Cardiovascular: denies: chest pain Respiratory: denies: [place], short of breath Integumentary: see HPI Psychiatric: reports: see HPI (Kailyn Styles PA-C) All Other Symptoms All Other Systems: Reviewed and Negative (Kailyn Styles PA-C) Physical Exam Physical Exam General Appearance: + WD/WN, No distress Extremities: + edema, + swelling Skin Characteristics: + other (Lateral aspect of right thigh- area of cellulitis about 6-7 cm in diameter with a central ulcer with fibrinous tissue present. No induration or fluctuance to suggest active abscess) (Kailyn Styles PA-C) Diagnostics Labs Labs Results Past 24 Hours Test 10/15/16 01:47 10/15/16 02:10 10/15/16 02:27 10/15/16 02:30 Range/Units Urine Test NEG NEG Urine Color YELLOW Urine Appearance CLEAR CLEAR Urine pH 7.5 4.5-7.5 Urine Specific [place] 1.007 1.000-1.030 Urine Protein NEG NEG Urine Glucose (UA) NEG NEG Urine Ketones NEG NEG Urine Occult Blood NEG NEG Urine Nitrite NEG NEG Urine Bilirubin NEG NEG Urine Urobilinogen NEG NEG Urine Leukocyte Esterase NEG NEG Urine WBC (Auto) 0 0-5 /hpf Urine RBC (Auto) 0-4 0-4 /hpf Urine Hyaline Casts (Auto) 0 0-5 /lpf Urine Epithelial Cells (Auto) 20-30 0-5 /lpf Urine Bacteria (Auto) NEG NEG Bedside Lactic Acid Venous < 0.30 0.90-1.70 mmol/L White Blood Count 7.93 4.8-10.8 K/uL Red Blood Count 3.43 4.2-5.4 M/uL Hemoglobin 10.0 12.0-16.0 g/dL Hematocrit 30.0 37-47 % Mean Corpuscular Volume 87.5 80-100 fL Mean Corpuscular Hemoglobin 29.2 25-34 pg Mean Corpuscular Hemoglobin Concent 33.3 32-36 g/dl Platelet Count 240 130-400 K/uL Mean Platelet Volume 9.4 7.4-10.4 fL Neutrophils (%) (Auto) 48.0 % Lymphocytes (%) (Auto) 39.6 % Monocytes (%) (Auto) 7.9 % Eosinophils (%) (Auto) 3.9 % Basophils (%) (Auto) 0.3 % Neutrophils # (Auto) 3.81 1.4-6.5 K/uL Lymphocytes # (Auto) 3.14 1.2-3.4 K/uL Monocytes # (Auto) 0.63 0.11-0.59 K/uL Eosinophils # (Auto) 0.31 0-0.5 K/uL Basophils # (Auto) 0.02 0-0.2 K/uL RDW Standard Deviation 45.3 36.4-46.3 fL RDW Coefficient of Variation 14.2 11.5-14.5 % Immature Granulocyte % (Auto) 0.3 % Immature Granulocyte # (Auto) 0.02 0.00-0.02 K/uL Sodium Level 140 136-145 mmol/L Potassium Level 4.2 3.5-5.1 mmol/L Chloride Level 106 98-107 mmol/L Carbon Dioxide Level 28 21-32 mmol/L Anion Gap 6.0 3-11 mmol/L Blood Urea Nitrogen 17 7-18 mg/dl Creatinine 0.74 0.60-1.20 mg/dl Est Creatinine Clear Calc Drug Dose 88.4 ml/min Estimated GFR () 117.5 Estimated GFR (Non- 101.3 BUN/Creatinine Ratio 23.4 10-20 Random Glucose 99 70-99 mg/dl Calcium Level 9.0 8.5-10.1 mg/dl Magnesium Level 2.1 1.8-2.4 mg/dl Total Bilirubin 0.1 0.2-1 mg/dl Direct Bilirubin < 0.1 0-0.2 mg/dl Aspartate Amino Transf (AST/SGOT) 5 15-37 U/L Alanine Aminotransferase (ALT/SGPT) 14 12-78 U/L Alkaline Phosphatase 68 45-117 U/L C-Reactive Protein 5.20 0-0.29 mg/dl Total Protein 6.8 6.4-8.2 gm/dl Albumin 3.1 3.4-5.0 gm/dl Lipase 111 73-393 U/L Test 10/15/16 07:04 Range/Units Microbiology Results 10/15/16 Blood Culture, Received Pending 10/15/16 Blood Culture, Received Pending 10/15/16 MRSA DNA Surveillance Screen, Received Pending 10/15/16 Gram Stain - Final, Resulted 10/15/16 Wound Culture, Resulted Pending (Kailyn Styles PA-C) Lab Interpretation Lab Interpretation: labs were reviewed (Kailyn Styles PA-C) Diagnostic Radiology Diagnostic Radiology Femur x-ray showed no bony involvement of the right upper thigh cellulitis/ infection Ultrasound of right upper extremity showed generalized edema and a small air pocket laterally (Kailyn Styles, [place]) Impression Assessment and Plan Assessment and Plan Right upper thigh Cellulitis - no leukocytosis - no bony involvement - cellulitis improving with antibiotics - central ulcer with fibrinous tissue present (Kailyn Styles PA-C) Assessment and Plan I saw and examined the patient. Agree with plan above. Will clean the wound up at the bedside. Already improving on antibiotics. (Misty Dewitt MD) Comments Comments She will have bedside incision/drainage and debridement under local anesthesia Patient informed of procedure and agrees to proceed Continue IV antibiotics Will need daily dressing changes/packing changes Our services signing off after procedure Thank you for the consultation Dr. Dewitt has seen and examined patient agrees with above stated findings and treatment plan. (Kailyn Styles PA-C)
--- NOTE | 2016-10-15 08:56 | Pharmacy Progress Note ---
Pharmacy Antibiotic Consult Date of Service: Oct 15, 2016. Pharmacy Dosing Scope Pharmacy is consulted to initiate Vancomycin IV dosing therapy, order appropriate labs and adjust drug dose/frequency. Subjective The patient is a 41 year old female admitted on Oct 15, 2016 at 04:09 with right upper thigh cellulitis. PMH significant for heroin and methadone abuse. Patient reports not using either in the last two and half weeks. She recently moved here from [place] and notes that prior to moving she was homeless. Objective Height (Feet): 5 Height (Inches): 5.00 Weight (Kilograms): 55.400 Lab Results (24hrs): Laboratory Tests Test 10/15/16 02:30 BUN/Creatinine Ratio 23.4 Blood Urea Nitrogen 17 mg/dl Creatinine 0.74 mg/dl White Blood Count 7.93 K/uL Red Blood Count 3.43 M/uL Hemoglobin 10.0 g/dL Hematocrit 30.0 % Mean Corpuscular Volume 87.5 fL Mean Corpuscular Hemoglobin 29.2 pg Mean Corpuscular Hemoglobin Concent 33.3 g/dl Platelet Count 240 K/uL Mean Platelet Volume 9.4 fL Neutrophils (%) (Auto) 48.0 % Lymphocytes (%) (Auto) 39.6 % Monocytes (%) (Auto) 7.9 % Eosinophils (%) (Auto) 3.9 % Basophils (%) (Auto) 0.3 % Neutrophils # (Auto) 3.81 K/uL Lymphocytes # (Auto) 3.14 K/uL Monocytes # (Auto) 0.63 K/uL Eosinophils # (Auto) 0.31 K/uL Basophils # (Auto) 0.02 K/uL Micro Results: Item Value Date Time Blood Culture Received 10/15/16225 Blood Pending Blood Culture Received 10/15/16229 Blood Pending Gram Stain - Final Resulted 10/15/16 023 Ulcer Leg Right Upper MRSA DNA Surveillance Screen Received 10/15/16 0620 Nasal Pending Recent Pertinent Medications Ceftriaxone 1g IV every 24 hours Assessment & Plan Assessment 41 year old female with history of heroin/methadone abuse receiving empiric Vancomycin for treatment of right thigh cellulitis. Plan Vancomycin IV dosing: * Patient was administered 1g IV in the ER at 0353. * Start Vanc 1050 mg (19 mg/kg) IV every 12 hours. Will start maintenance dose early since patient did not receive a true loading dose. I anticipate drug level to be around 18 mcg/mL at 1200 today. * PK estimates: ke = 0.077 hr-1, T/12 = 9 hr, Vd = 0.7 L/kg * Goal trough level estimate: ~15 mcg/mL. * Tough level has been ordered for: . Pharmacy will continue to follow and will adjust dose/frequency as necessary. Thank you
[2016-10-15] MEDS ORDERED: LIDOCAINE/EPINEPHRINE 1% 20 ML VIAL INFIL SCH (09:00)
--- NOTE | 2016-10-15 09:27 | Procedure Note ---
Procedure Note Procedure Date Oct 15, 2016. Procedure Description Procedure Name: incision and drainage of right thigh abscess Procedure time out: side/site verified, patient ID confirmed, correct procedure Consent obtained: verbal Performed by: physician phone triage specialist (PAUL Lyn) Indications: therapeutic Contraindications: none Description: 41 yr old woman with right thigh cellulitis and a small pocket that she had drained herself. This still contained necrotic material. Verbally consented for incision and drainage at bedside. The right lateral thigh was prepped with betadine. The area was anesthetized with 1% lidocaine with epinephrine - 20 cc total. The fibrinous/ necrotic tissue was debrided. The wound was irrigated and packed with a 2x2 gauze. Wound measured about 2 cm circular. Sterile dressing applied. She tolerated the procedure well. I was present for the entire procedure. Complications: none Patient tolerated procedure: well Post-procedure vital signs: reviewed and stable
[2016-10-15 09:43] LABS: BENZODIAZEPINE, URINE NEG (NEG); COCAINE,URINE NEG (NEG); PHENCYCLIDINE, URINE NEG (NEG)
[2016-10-15] MEDS: VANCOMYCIN INJ 1,050 MG in SODIUM CHLORIDE 0.9% 250ML 250 ML IV SCH ×2 (11:17→23:43)
[2016-10-15] MEDS: ACETAMINOPHEN 325 MG TAB PO PRN ×2 (15:17→21:30)
[2016-10-15 15:53] VITALS: BP 98/64; PULSE 101; TEMP 36.8; O2SAT 98
[2016-10-15] MEDS ORDERED: DOCUSATE SODIUM 100 MG CAP PO SCH (20:00)
[2016-10-15] MEDS ORDERED: TRAZODONE HCL 50 MG TAB PO SCH (21:00)
[2016-10-16 00:39] VITALS: BP 110/67; PULSE 92; TEMP 36.8; O2SAT 98
[2016-10-16] MEDS ORDERED: CEFTRIAXONE SOD INJ 1 GM in DEXTROSE 5% ADD-VANTAGE 50ML 50 ML IV SCH (03:00)
[2016-10-16 06:44] LABS: HEMATOCRIT 32.1 % (37-47); MEAN CELL VOLUME 87.7 fL (80-100); MEAN CORPUSCULAR HEMOGLOBIN 29.5 pg (25-34); MEAN CORPUSCULAR HGB CONC 33.6 g/dl (32-36); MEAN PLATELET VOLUME 9.5 fL (7.4-10.4); PLATELET COUNT 261 K/uL (130-400); RED BLOOD COUNT 3.66 M/uL (4.2-5.4)
[2016-10-16 07:19] LABS: BUN/CREATININE RATIO 22.1 (10-20); CALCIUM 8.3 mg/dl (8.5-10.1); CREATININE 0.59 mg/dl (0.60-1.20); MAGNESIUM 2.1 mg/dl (1.8-2.4); POTASSIUM 4.4 mmol/L (3.5-5.1)
--- NOTE | 2016-10-16 07:27 | Hospitalist Progress Note ---
Hospitalist Progress Note Date of Service Oct 16, 2016. Objective Vital Signs Date Time Temp Pulse Resp B/P Pulse Ox O2 Delivery O2 Flow Rate FiO2 10/16/16 00:39 36.8 92 18 110/67 98 Room Air 10/16/16 00:00 Room Air 10/15/16 20:00 Room Air 10/15/16 15:53 36.8 101 16 98/64 98 Room Air 10/15/16 15:35 Room Air 10/15/16 09:30 Room Air 10/15/16 07:35 36.6 83 16 93/59 99 Room Air Laboratory Results Last 24 Hours Test 10/15/16 08:45 10/16/16 06:20 Urine Opiates Screen POS Urine Methadone, Qualitative NEG Urine Barbiturates NEG Urine Phencyclidine (PCP) Level NEG Ur Amphetamine/Methamphetamine NEG MDMA (Ecstasy) Screen NEG Urine Benzodiazepines Screen NEG Urine Cocaine Metabolite NEG Urine Marijuana (THC) NEG White Blood Count 7.00 K/uL Red Blood Count 3.66 M/uL Hemoglobin 10.8 g/dL Hematocrit 32.1 % Mean Corpuscular Volume 87.7 fL Mean Corpuscular Hemoglobin 29.5 pg Mean Corpuscular Hemoglobin Concent 33.6 g/dl RDW Standard Deviation 45.7 fL RDW Coefficient of Variation 14.1 % Platelet Count 261 K/uL Mean Platelet Volume 9.5 fL Sodium Level 140 mmol/L Potassium Level 4.4 mmol/L Chloride Level 110 mmol/L Carbon Dioxide Level 21 mmol/L Anion Gap 9.0 mmol/L Blood Urea Nitrogen 13 mg/dl Creatinine 0.59 mg/dl Est Creatinine Clear Calc Drug Dose 110.9 ml/min Estimated GFR () 132.9 Estimated GFR (Non- 114.6 BUN/Creatinine Ratio 22.1 Random Glucose 93 mg/dl Calcium Level 8.3 mg/dl Magnesium Level 2.1 mg/dl Chemistry Specimen Hemolysis Assessment and Plan This is a 41 yo female that is presenting to us with cellulitis of the right upper thigh. She states that approx a week ago, after her more recent visit to the ED for withdrawal, she started to have pain and redness in the right upper thigh. It evolved into into an ulcer that is drainage a blackish pus especially in the last 24 hours. She denies ever having any fever, chest pain, SOB or abdominal pain. She does note that she recently moved here from [place] with the hopes that her and her partner could "get their lives together." She has been heroin/ methadone free for the past two and a half weeks apparently. Prior to moving here she was homeless, living in a tent or in empty homes. She is unsure of ever having an infection with MRSA. She denies ever having any fevers , chest pain, numbness, weakness, abdominal pain or shortness of breath. She was testing for HIV years ago which was negative but agreeable to be retested. Cellulitis of the right upper thigh: - Admit med/surg - Femur x-ray- No acute bony abnormality. Soft tissue edema lateral to the hip and proximal femur with a small subcutaneous air pocket laterally. - Right lower extremity U/S- Generalized soft tissue edematous change lateral aspect right upper thigh with findings suggesting potential early phlegmon formation with a small 1 cm superficial fluid pocket/open wound. - IV Vancomycin + Rocephin (started on 10/15) - Blood cultures - Wound cultures- growing gram positive cocci - U/A negative, urine toxicology screen- +opiates - MRSA screen negative - HIV- negative, HCV- preliminary + - Follow CBC and BMP - Consulted General Surgery, appreciate recommendation -- I&D on 10/15 H/O drug abuse: - Observe for signs of withdrawal - Last used ~2 weeks ago per patient. Was seen in ED on 10/04 for withdrawal symptoms (seizures). Denies any recent withdrawal symptoms Tobacco abuse: - Smokes ~1 pack per day - Smoking cessation counselling - Nicotine patch Depression - Continue Trazodone GI Prophylaxis: - Maalox PRN - IV Zofran PRN - Colace and/or Milk of Mag PRN DVT prophylaxis - Early ambulation - SCD Code Status: - LEVEL I, FULL Dispo: - Lives in [place] with boyfriend. No PCP. Would like setup with outpatient meetings. Consulted social contact worker - Discharge to home once medically stable
[2016-10-16] MEDS ORDERED: NICOTINE 14 MG/24 HR TDSY TD SCH (08:00)
[2016-10-16 08:11] VITALS: BP 112/69; PULSE 82; TEMP 36.9; O2SAT 97
--- NOTE | 2016-10-16 09:03 | Discharge Instructions ---
Discharge Instructions Admission Reason for Admission: Cellulitis Of Rt Thigh, Phlegmonous Cellulitis Discharge Discharge Diagnosis / Problem: Cellulitis of right thigh Discharge Goals Goal(s): Decrease discomfort, Improve disease control, Learn about illness, Diagnostic testing, Therapeutic intervention, Prevent Disease Progression Activity Recommendations Activity Limitations: resume your previous activity . Instructions / Follow-Up Instructions / Follow-Up YOU HAVE DECIDED TO LEAVE AMA (AGAINST MEDICAL ADVICE)- it has been HIGHLY recommended that you stay in the hospital for continued treatment. At this point , you are receiving IV antibiotics for your infection on the right thigh. Additionally, you are receiving wound care. These are both treatments that you will NOT receive outpatient. By leaving today, you understood, that you will NOT be given oral antibiotics for you cellulitis. By leaving, you are putting yourself at serious risk for spreading of infection to blood, bone, or muscle, which could ultimately lead to organ damage/. IT HAS BEEN RECOMMENDED YOU FOLLOW-UP WITH AN OUTPATIENT PROVIDER WITHIN 24 HOURS OF LEAVING HOSPITAL. IF AT ANY POINT AFTER LEAVING THE HOSPITAL TODAY YOU DECIDE YOU WANT/NEED TREATMENT AGAIN, PLEASE RETURN TO ANY EMERGENCY DEPARTMENT FOR CARE BEE. It is highly encouraged to quit smoking. It is recommended you find outpatient meetings to continue with your journey of sobriety. It is HIGHLY recommended you establish care with a PCP BEE. Current Hospital Diet Patient's current hospital diet: Regular Diet Discharge Diet Recommended Diet: Regular Diet Procedures Procedures Performed: 1. Extremity U/S 2. Femur x-ray Pending Studies Studies pending at discharge: yes List of pending studies: 1. Final blood cultures 2. Wound sensitives 3. HCV confirmation lab Laboratory Results Last 24 Hours Test 10/16/16 06:20 White Blood Count 7.00 K/uL Red Blood Count 3.66 M/uL Hemoglobin 10.8 g/dL Hematocrit 32.1 % Mean Corpuscular Volume 87.7 fL Mean Corpuscular Hemoglobin 29.5 pg Mean Corpuscular Hemoglobin Concent 33.6 g/dl RDW Standard Deviation 45.7 fL RDW Coefficient of Variation 14.1 % Platelet Count 261 K/uL Mean Platelet Volume 9.5 fL Sodium Level 140 mmol/L Potassium Level 4.4 mmol/L Chloride Level 110 mmol/L Carbon Dioxide Level 21 mmol/L Anion Gap 9.0 mmol/L Blood Urea Nitrogen 13 mg/dl Creatinine 0.59 mg/dl Est Creatinine Clear Calc Drug Dose 110.9 ml/min Estimated GFR () 132.9 Estimated GFR (Non- 114.6 BUN/Creatinine Ratio 22.1 Random Glucose 93 mg/dl Calcium Level 8.3 mg/dl Magnesium Level 2.1 mg/dl Chemistry Specimen Hemolysis Medical Emergencies . Who to Call and When: Medical Emergencies: If at any time you feel your situation is an emergency, please call 911 immediately. . Non-Emergent Contact Non-Emergency issues call your: Primary Care Provider Call Non-Emergent contact if: you have a fever, temperature is above 100.5, your pain is not controlled, your pain is worsening, your pain is unusual for you, your pain is concerning you, you have any medication questions . . "Provider Documentation" section prepared by Debbie Shabazz. VTE Core Measure Inpt VTE Proph given/why not?: SCD's
--- NOTE | 2016-10-16 09:21 | Discharge Summary ---
Discharge Summary Admission Date: Oct 15, 2016 at 04:09 Discharge Date: Oct 16, 2016 Discharge Disposition: Home (AMA ) Principal Diagnosis: Cellulitis of right thigh Problems/Secondary Diagnoses: 1. Drug abuse 2. Tobacco abuse 3. Depression Immunizations: Have You Had Influenza Vaccine: No History of Tetanus Vaccine?: Yes Procedures: RIGHT FEMUR 2 VIEWS ROUTINE CLINICAL HISTORY: right lateral upper thigh abscess/infection Right pain COMPARISON: None. DISCUSSION: The bones and joint spaces appear intact. There is no evidence of fracture, dislocation or bony disease. Moderate soft tissue edema lateral to the proximal femur and right hip. Possible small subcutaneous air pocket IMPRESSION: No acute bony abnormality. Soft tissue edema lateral to the hip and proximal femur with a small subcutaneous air pocket laterally Electronically signed by: Star Chaves M.D. 10/15/2016 7:33 AM Dictated Date/Time: 10/15/2016 7:31 AM The status of this report is Signed. Draft = Not yet reviewed or approved by Radiologist. Signed = Reviewed and approved by Radiologist. Ultrasound right thigh RIGHT EXTREMITY NONVASCULAR LIMITED CLINICAL HISTORY: right upper lateral thigh abscess Right abscess TECHNIQUE: Real-time ultrasound COMPARISON STUDY: None FINDINGS: Generalized soft tissue edematous change with linear foci of fluid within inferolateral aspect of the proximal right thigh. Small subcutaneous pocket measuring 8 x 12 mm possibly represent a small collection versus trauma. IMPRESSION: Generalized soft tissue edematous change lateral aspect right upper thigh with findings suggesting potential early phlegmon formation with a small 1 cm superficial fluid pocket/open wound. Electronically signed by: Star Chaves M.D. 10/15/2016 7:36 AM Dictated Date/Time: 10/15/2016 7:33 AM The status of this report is Signed. Draft = Not yet reviewed or approved by Radiologist. Signed = Reviewed and approved by Radiologist. Medication Reconciliation Continued Medications: Ondasetron Odt (Zofran Odt) 4 Mg Tab 4 MG SL Q6H for Nausea, #15 TAB Trazodone Hcl (Trazodone) 100 Mg Tab 150 MG PO HS, TAB Discharge Exam Review of Systems: Constitutional: No chills, No fatigue, No fever, No sweats, No weakness Respiratory: No cough, No hemoptysis, No shortness of breath Cardiovascular: No chest pain, No edema, No palpitations Abdomen: No constipation, No diarrhea, No nausea, No pain, No vomiting Musculoskeletal: No calf pain, No joint pain, No muscle pain, No swelling Genitourinary - Female: No dysuria, No hematuria Neurologic: No numbness/tingling, No weakness Psychiatric: No anxiety, No depression symptoms Hematologic / Lymphatic: No abnormal bleeding/bruising Integumentary: No itch, No new/changing skin lesions, No rash Physical Exam: General Appearance: no apparent distress Eyes: normal inspection, PERRL ENT: hearing grossly normal Neck: supple Respiratory/Chest: lungs clear, no respiratory distress, no accessory muscle use Cardiovascular: regular rate, rhythm, no edema, normal peripheral pulses Abdomen / GI: normal bowel sounds, non tender, soft Extremities: no calf tenderness, no pedal edema, + pertinent finding (right thigh cellulitis dressed in clean dressing, erythema has significantly improved) Neurologic/Psychiatric: alert, normal mood/affect, oriented x 3 Skin: normal color, warm/dry, no rash Hospital Course This is a 41 yo female that is presenting to us with cellulitis of the right upper thigh. She states that approx a week ago, after her more recent visit to the ED for withdrawal, she started to have pain and redness in the right upper thigh. It evolved into into an ulcer that is drainage a blackish pus especially in the last 24 hours. She denies ever having any fever, chest pain, SOB or abdominal pain. She does note that she recently moved here from [place] with the hopes that her and her partner could "get their lives together." She has been heroin/ methadone free for the past two and a half weeks apparently. Prior to moving here she was homeless, living in a tent or in empty homes. She is unsure of ever having an infection with MRSA. She denies ever having any fevers , chest pain, numbness, weakness, abdominal pain or shortness of breath. She was testing for HIV years ago which was negative but agreeable to be retested. Cellulitis of the right upper thigh: - Admit med/surg - Femur x-ray- No acute bony abnormality. Soft tissue edema lateral to the hip and proximal femur with a small subcutaneous air pocket laterally. - Right lower extremity U/S- Generalized soft tissue edematous change lateral aspect right upper thigh with findings suggesting potential early phlegmon formation with a small 1 cm superficial fluid pocket/open wound. - IV Vancomycin + Rocephin (started on 10/15) - Blood cultures - Wound cultures- growing Beta Haemolytic Strep. Species, sensitives pending - U/A negative, urine toxicology screen- +opiates - MRSA screen negative - HIV- negative, HCV- preliminary +, pending confirmation lab - Follow CBC and BMP - Consulted General Surgery, appreciate recommendation -- I&D on 10/15 H/O drug abuse: - Observe for signs of withdrawal - Last used ~2 weeks ago per patient. Was seen in ED on 10/04 for withdrawal symptoms (seizures). Denies any recent withdrawal symptoms Tobacco abuse: - Smokes ~1 pack per day - Smoking cessation counselling - Nicotine patch Depression - Continue Trazodone GI Prophylaxis: - Maalox PRN - IV Zofran PRN - Colace and/or Milk of Mag PRN DVT prophylaxis - Early ambulation - SCD Code Status: - LEVEL I, FULL Dispo: - Left AMA On 10/16, patient signed AMA papers- PATIENT WAS ALERT AND ORIENTED x3. She was mentally capable of understanding full consequences of her actions. It was explained to her in depth that by leaving today, she is putting herself at serious risk: such as, spread of infection to muscle, bone, blood, possibly leading to serious organ damage or . Patient was told she was receiving professional wound care, which will not be continued at discharge. Also, it was explained to patient that by leaving today, she will NOT be given any antibiotics. Patient was informed that final wound/blood cultures are not completed. Patient states she has antibiotics at home that she would take- It was explained to patient that not all antibiotics are the same and just because that antibiotic worked for an infection in that past, it is very likely that it will not work for her current cellulitis. Per patient, case management spoke with patient on 10/15 and informed her of an outpatient clinic. It was recommended that she followup within 24 hours after leaving the hospital with an outpatient provider. Patient was informed on the important of stopping tobacco use and continuing on her journey of sobriety. Patient was encouraged to find outpatient meetings to help maintain sobriety. Patient was encouraged to establish care with a PCP. IF FOR ANY REASON AFTER LEAVING THE HOSPITAL, PATIENT DECIDED SHE WANTS/NEEDS MEDICAL CARE AGAIN, SHE WAS INTRUSTED TO GO TO ANY EMERGENCY DEPARTMENT BEE. Total Time Spent: Greater than 30 minutes This includes examination of the patient, discharge planning, medication reconciliation, and communication with other providers. Discharge Instructions Please refer to the electronic Patient Visit Report (Discharge Instructions) for additional information. Follow-Up Follow-up with provider within 24 hours after leaving hospital Please follow-up/keep all of your subspecialty appointments
[2016-10-16 23:31] LABS: HEPATITIS C RNA TMA QUAL Not detected
[2016-10-17] MEDS ORDERED: VANCOMYCIN TROUGH SCH (11:30)
[2016-10-17 22:56] LABS: COD UR NEGATIVE NG/ML (CUTOFF=50); HYDROCOD UR NEGATIVE NG/ML (CUTOFF=50); HYDROMOR UR 204 NG/ML (CUTOFF=50); MORPHINE UR 436 NG/ML (CUTOFF=50); NORHYDROCODONE CONF UR NEGATIVE NG/ML (CUTOFF=50); OXYMORPH UR NEGATIVE NG/ML (CUTOFF=50)
== END 2016-10-16 09:40 | disposition left against medical advice (07) | DRG 603 ==
LOC: ENRESERVDT → ENRESERVTM → C.EDB 01:28 → C.4E 04:09
PROVIDERS: ADMIT Student in an Organized Health Care Education/Training Program; ATTEND Hospitalist
PROC: 0Y9C0ZZ Drainage of Right Upper Leg, Open Approach (ICD-10-PCS; principal; 2016-10-15)
DX: L03.115 Cellulitis of right lower limb (principal); E46 Unspecified protein-calorie malnutrition; F17.210 Nicotine dependence, cigarettes, uncomplicated; M25.551 Pain in right hip; F11.10 Opioid abuse, uncomplicated; F43.10 Post-traumatic stress disorder, unspecified; F41.9 Anxiety disorder, unspecified; F31.9 Bipolar disorder, unspecified; Z53.21 Procedure and treatment not carried out due to patient leaving prior to being seen by health care provider; Z59.0 Homelessness; Z87.898 Personal history of other specified conditions; Z79.899 Other long term (current) drug therapy; Z23 Encounter for immunization; Z68.20 Body mass index [BMI] 20.0-20.9, adult